=== PATIENT | female | born 1995 | race Two or more races ===

== ENCOUNTER 2016-12-25 11:51 | Emergency (ER) | payer OTHER ==
[2016-12-25] MEDS ORDERED: LORazepam 2 MG/ML INJ IVP ONE (12:03)
--- NOTE | 2016-12-25 12:18 | EDPHY ---
H & P Stated Complaint: SEIZURE Source: Patient Exam Limitations: No limitations - Personal History Current Tetanus/Diphtheria Vaccine: Unsure - Medical/Surgical History Hx Asthma: No Hx Chronic Respiratory Disease: No Hx Diabetes: No Hx Cardiac Disease: No Hx Renal Disease: No Hx Cirrhosis: No Hx Alcoholism: No Hx HIV/AIDS: No Hx Splenectomy or Spleen Trauma: No Other PMH: PMH: depression, anxiey, transversemyelitis. SEIZURES. PSH: - Family History Significant Family History: No pertinent family hx - Social History Smoking Status: Former smoker Alcohol Use: Rarely Drug Use: None Time Seen by Provider: 12/25/16 12:09 HPI/ROS: HPI: 21-year-old female presents to emergency department with chief concern possible seizure activity. Occurred 30 minutes prior to arrival when she was sitting in class at [employer], slumped over and had a witnessed seizure that lasted for 2 minutes. She does not remember the event. Reports possible seizure activity, not confirmed, in the past for which she is being worked up by a neurologist who has performed an MRI of the head in the past 2 months, and has referred her to a data processing auditor. Denies recent trauma, fever, chills, alcohol use, URI symptoms, shortness of breath, chest pain, abdominal pain, nausea or vomiting. No recent illicit drug use. Has a history of vagal episodes in the past. ROS:10 point review of systems is negative other than as stated in HPI (Claudia Up) - Social History Additional Social History: [employer] student (Claudia Up) - Physical Exam Exam: Vital signs stable, reviewed by me General: Awake, calm, cooperative. No acute distress. EENT: PERRLA. EOMI. No papilledema. no conjunctival injection or hemorrhage. TMs intact, translucent. No evidence of bleeding or otorrhea. Nasal septum midline, nasal mucosa pink. no evidence of drainage. Uvula midline, pharynx without redness. Neck: No midline tenderness, full range of motion, supple Resp: Breathing unlabored. Lungs clear to auscultation bilaterally. CV: HRR. S1S2. No MRG. GI: Abdomen soft, nontender. Bowel sounds normoactive and positive x4 quadrants. : No suprapubic tenderness. No CVA tenderness. Skin: Warm, dry. No rashes noted. Capillary refill less than 2 seconds. Musculoskeletal: Strength equal and 5+ in all 4 extremities. Neuro: No focal neuro deficit. CN II through XII intact. Rapid alternating hand movements intact. Finger to nose intact. Heel to ramirez intact. Negative Romberg. Negative pronator drift. Gait even and steady. Memory and recall of 3/3 objects at 5 minutes intact. Upper and lower extremity DTRs 2+. Extremities: Full range of motion. (Claudia Up) Constitutional: Initial Vital Signs Temperature (C) 36.6 C 12/25/16 11:57 Heart Rate 76 12/25/16 11:57 Respiratory Rate 16 12/25/16 11:57 Blood Pressure 109/81 H 12/25/16 11:57 O2 Sat (%) 96 12/25/16 11:57 O2 Delivery Mode Room Air Allergies/Adverse Reactions: No Known Allergies Allergy (Unverified 08/23/16 17:56) Home Medications: Medication Instructions Recorded BENADRYL 08/23/16 LORazepam 08/23/16 Minastrin 24 Fe Chewable Tab 08/23/16 Zoloft 100mg (*) 08/23/16 Medical Decision Making ED Course/Re-evaluation: 21-year-old female presents to emergency department brought in by EMS with chief concern seizure activity. She has had possible seizure activity, not confirmed, for which she has been under the care of a neurologist. She had a MRI of the head under the care of a neurologist within the past 2 months. Neurologist referred her to data processing auditor for further workup. She has not recently drink alcohol. This is not an alcohol withdrawal seizure. 1310: EKG shows a sinus rhythm, rate 83. White count 48721, otherwise labs are fairly unremarkable. Patient feels much better. She agrees to follow up with her neurologist within the next 2-3 days without fail. She has been counseled regarding seizure precautions. (Claudia Up) Differential Diagnosis: Differential diagnosis includes but is not limited to seizure, alcohol withdrawal seizure, metabolic derangement, infection, head trauma (Claudia Up ) Other Provider: The patient wasevaluatedand managed by themidlevel provider. My co- signature indicates that [facility] reviewed this chart and I agree with the findings and plan of care asdocumented. I am the secondary supervising physician. (Ana Genao) - Data Points Laboratory Results: Laboratory Results 12/25/16 12:30 12/25/16 12:30 Medications Given: Discontinued Medications Lorazepam (Ativan Injection) 1 mg IVP EDNOW ONE Stop: 12/25/16 12:04 Last Admin: 12/25/16 12:33 Dose: 1 mg Departure - Departure Disposition: Home, Routine, Self-Care Clinical Impression: Seizure-like activity Condition: Good Instructions: Epilepsy (ED) Additional Instructions: Plan: Please follow up with your neurologist within the next 2-3 days for recheck without fail--When you call to schedule appointment, please let the office know you are an "ER follow up" appointment" Also, please alert your primary care provider of these events shower rather than bathe do not swim unsupervised no heights including climbing, ladders Do not drive until you have been cleared by neurology Follow up in 2-3 days as discussed--tell office you are "ER follow up appointment" when you call. Referrals: NONE *PRIMARY CARE P,. [Unknown] - As per Instructions Henry Winter DO [Doctor of Osteopathy] - As per Instructions
[2016-12-25 12:44] LABS: % IMMATURE GRANULYOCYTES 0.2 % (0.0-1.1); ABSOLUTE IMMATURE GRANULOCYTES 0.03 10^3/uL (0.00-0.10); ADD DIFF? NO; ADD MORPH? NO; ADD SCAN? NO; ATYPICAL LYMPHOCYTE FLAG 10 (0-99); FRAGMENT RBC FLAG 0 (0-99); HEMATOCRIT 39.6 % (38.0-47.0); HEMOGLOBIN 13.4 g/dL (12.6-16.3); LEFT SHIFT FLG 0 (0-99); LIPEMIA HEMOLYSIS FLAG 90 (0-99); MEAN CELL HEMOGLOBIN 29.2 pg (27.9-34.1); MEAN CELL HEMOGLOBIN CONCENTR. 33.8 g/dL (32.4-36.7); MEAN CELL VOLUME 86.3 fL (81.5-99.8); MEAN PLATELET VOLUME 10.2 fL (8.7-11.7); PLATELET CLUMPS FLAG 0 (0-99); PLATELET COUNT 337 10^3/uL (150-400); RED BLOOD CELL COUNT 4.59 10^6/uL (4.18-5.33); RED CELL DISTRIBUTION WIDTH 13.1 % (11.5-15.2)
--- NOTE | 2016-12-25 12:53 | CPEKG ---
Heart Rate: 83 RR Interval: 723 P-R Interval: 128 QRSD Interval: 88 QT Interval: 368 QTC Interval: 433 P [place]: 73 QRS [place]: 84 T Wave [place]: 11 EKG Severity - NORMAL ECG - EKG Impression: SINUS RHYTHM EKG Impression: Left atrial abnormality Electronically Signed By: Claudia Pereira 26-Dec-2016 08:57:34
[2016-12-25 12:59] LABS: ANION GAP 11 mEq/L (8-16); CALCIUM 9.5 mg/dL (8.5-10.4); CARBON DIOXIDE 25 mEq/l (22-31); CHLORIDE 103 mEq/L (97-110); CREATININE 0.9 mg/dL (0.6-1.0); GLOMERULAR FILTRATION RATE > 60; GLUCOSE 88 mg/dL (70-100); POTASSIUM 3.5 mEq/L (3.5-5.2); SODIUM 139 mEq/L (134-144)
[2016-12-25 13:24] VITALS: BP 106/73; PULSE 80; RESP 18; TEMP 98.2; O2SAT 97
== END 2016-12-25 13:24 | disposition home or self-care (01) ==
LOC: EDUNIT#
DX: G40.909 Epilepsy, unspecified, not intractable, without status epilepticus (principal); Z87.891 Personal history of nicotine dependence
CPT/HCPCS: 96374

== ENCOUNTER 2017-06-29 11:19 | Emergency (ER) | payer OTHER ==
[2017-06-29 11:27] VITALS: TEMP 98.2
[2017-06-29] MEDS ORDERED: NS 1,000 ML IV ONE ×2 (11:57)
[2017-06-29] MEDS ORDERED: LORazepam 2 MG/ML INJ IVP ONE (11:57)
[2017-06-29] MEDS ORDERED: ONDANSETRON 4 MG/2 ML VIAL IVP ONE (11:57)
[2017-06-29] MEDS ORDERED: KETOROLAC 30 MG/1 ML SDV IVP ONE (11:57)
--- NOTE | 2017-06-29 12:00 | EDPHY ---
H & P Stated Complaint: VOMITTING & HYPERVENTILATING Time Seen by Provider: 06/29/17 11:52 HPI/ROS: CHIEF COMPLAINT: Nausea vomiting diarrhea since this morning HISTORY OF PRESENT ILLNESS: 22-year-old female with no history of chronic abdominal pathology, no history of abdominal surgeries, awoke with nausea, vomiting, diarrhea since this morning as well as diffuse abdominal pain and cramping. No prior history of similar or chronic history of cyclic vomiting syndrome. No international travel. No untreated water sources. No urinary abnormality. No abdominal or other trauma. No seizure PRIMARY CARE PROVIDER: [facility] REVIEW OF SYSTEMS: A ten point review of systems was performed and is negative with the exception of the items mentioned in the HPI PAST MEDICAL & SURGICAL HISTORY: Seizure disorder history SOCIAL HISTORY: student PHYSICAL EXAM (Prior to examination, patient consented to physical exam, hands were washed and my usual and customary physical exam procedures followed) 1) GENERAL: Well-developed, well-nourished, alert and oriented. Appears uncomfortable, hyperventilating, appears anxious, retching 2) HEAD: Normocephalic, atraumatic 3) HEENT: Pupils equal, round, reactive to light bilaterally. Sclera anicteric. Nasopharynx, oropharynx, clear, no lesions. Dry mucous membranes Ears bilaterally with normal tympanic membranes. 4) NECK: Full range of motion, no meningeal signs. 5) LUNGS: Clear auscultation bilaterally, no wheezes, no rhonchi, no retractions. 6) HEART: Regular rate and rhythm, no murmur, no heave, no gallop. 7) ABDOMEN: Guarding abdomen, tender to palpation all quadrants, 8) MUSCULOSKELETAL: Moving all extremities, no focal areas of tenderness, no obvious trauma. No peripheral edema or discoloration. 9) BACK: No CVA tenderness 10) SKIN: No rash, no petechiae. 11) Psychiatric: Patient is oriented X 3, there is no agitation. DIFFERENTIAL DIAGNOSIS: My differential diagnosis includes, but is not limited to, acute appendicitis, acute cholecystitis, bowel obstruction, acute pancreatitis, ovarian torsion, ectopic , gastritis and urinary tract infection. The patient understands that this diagnosis is provisional and can never be 100% accurate. This is a partial list of diagnoses considered. These considerations are based on history, physical exam, past history and reassessment. - Personal History LMP (Females 10-55): Over 28 Days Ago Current Tetanus/Diphtheria Vaccine: Unsure - Medical/Surgical History Hx Asthma: No Hx Chronic Respiratory Disease: No Hx Diabetes: No Hx Cardiac Disease: No Hx Renal Disease: No Hx Cirrhosis: No Hx Alcoholism: No Hx HIV/AIDS: No Hx Splenectomy or Spleen Trauma: No Other PMH: PMH: depression, anxiey, transversemyelitis. SEIZURES. PSH: - Social History Smoking Status: Current some day smoker Constitutional: Initial Vital Signs Temperature (C) 36.8 C 06/29/17 11:24 Heart Rate 78 06/29/17 11:24 Respiratory Rate 24 H 06/29/17 11:24 Blood Pressure 118/72 06/29/17 11:24 O2 Sat (%) 96 06/29/17 11:24 O2 Delivery Mode Room Air Allergies/Adverse Reactions: No Known Allergies Allergy (Unverified 08/23/16 17:56) Home Medications: Medication Instructions Recorded BENADRYL 08/23/16 LORazepam 08/23/16 Minastrin 24 Fe Chewable Tab 08/23/16 Zoloft 100mg (*) 08/23/16 Ondansetron Odt [Zofran Odt] 4 mg PO Q4PRN PRN #10 tab 06/29/17 Medical Decision Making ED Course/Re-evaluation: 12:50 p.m.: Re-evaluation after IV Ativan, Zofran, Toradol. She is sleeping, easily woken. Re-examined her abdomen which is soft no guarding or rebound no McBurney's point pain. At this time I think that acute surgical abdominal pathology is less than likely in this patient, doubt ectopic , doubt acute appendicitis, doubt acute cholecystitis. Will attempt oral fluid challenge and re-evaluated 1:15 p.m.: Re-evaluation, she has been able to tolerate oral intake. Re- examined her abdomen which is soft no guarding or rebound. Specifically no McBurney's point pain. She would like to be discharged. She would like to common sleep. She has been informed that at this time I think that acute surgical abdominal pathology is less than likely however this cannot be fully ruled out in the importance of close follow-up has been stressed on numerous instances. Recommend a 12 hour recheck in the ER. Definitely return sooner if she is experiencing new symptoms. She feels comfortable with this plan. - Data Points Laboratory Results: Laboratory Results 06/29/17 12:00 06/29/17 12:00 06/29/17 06/29/17 06/29/17 13:15 12:00 12:00 WBC RBC Hgb Hct MCV MCH MCHC RDW Plt Count MPV Neut % (Auto) Lymph % (Auto) [place] % (Auto) Eos % (Auto) Baso % (Auto) Nucleat RBC Rel Count Absolute Neuts (auto) Absolute Lymphs (auto) Absolute Monos (auto) Absolute Eos (auto) Absolute Basos (auto) Absolute Nucleated RBC Immature Gran % Immature Gran # Sodium 141 mEq/L mEq/L (134-144) Potassium 4.2 mEq/L mEq/L (3.5-5.2) Chloride 105 mEq/L mEq/L (97-110) Carbon Dioxide 18 mEq/l L mEq/l (22-31) Anion Gap 18 mEq/L H mEq/L (8-16) BUN 10 mg/dL mg/dL (7-23) Creatinine 0.8 mg/dL mg/dL (0.6-1.0) Estimated GFR > 60 Glucose 105 mg/dL H mg/dL (70-100) Calcium 10.0 mg/dL mg/dL (8.5-10.4) Total Bilirubin 0.4 mg/dL mg/dL (0.1-1.4) Conjugated Bilirubin 0.3 mg/dL mg/dL (0.0-0.5) Unconjugated Bilirubin 0.1 mg/dL mg/dL (0.0-1.1) AST 34 IU/L IU/L (14-46) ALT 37 IU/L IU/L (9-52) Alkaline Phosphatase 64 IU/L IU/L (38-126) Total Protein 8.2 g/dL g/dL (6.3-8.2) Albumin 4.8 g/dL g/dL (3.5-5.0) Lipase 95 IU/L IU/L (23-300) Beta HCG, Qual NEGATIVE Urine Color YELLOW Urine Appearance CLEAR Urine pH 7.0 (5.0-7.5) Ur Specific [place] 1.011 (1.002-1.030) Urine Protein NEGATIVE (NEGATIVE) Urine Ketones NEGATIVE (NEGATIVE) Urine Blood NEGATIVE (NEGATIVE) Urine Nitrate NEGATIVE (NEGATIVE) Urine Bilirubin NEGATIVE (NEGATIVE) Urine Urobilinogen NEGATIVE EU EU (0.2-1.0) Ur Leukocyte Esterase NEGATIVE (NEGATIVE) Urine RBC 5-10 /hpf H /hpf (0-3) Urine WBC 1-3 /hpf /hpf (0-3) Ur Epithelial Cells TRACE /lpf /lpf (NONE-1+) Urine Mucus TRACE /lpf /lpf (NONE-1+) Urine Glucose NEGATIVE (NEGATIVE) 06/29/17 12:00 WBC 10.60 10^3/uL H 10^3/uL (3.80-9.50) RBC 4.64 10^6/uL 10^6/uL (4.18-5.33) Hgb 13.8 g/dL g/dL (12.6-16.3) Hct 40.8 % % (38.0-47.0) MCV 87.9 fL fL (81.5-99.8) MCH 29.7 pg pg (27.9-34.1) MCHC 33.8 g/dL g/dL (32.4-36.7) RDW 13.1 % % (11.5-15.2) Plt Count 479 10^3/uL H 10^3/uL (150-400) MPV 10.0 fL fL (8.7-11.7) Neut % (Auto) 64.5 % % (39.3-74.2) Lymph % (Auto) 26.0 % % (15.0-45.0) [place] % (Auto) 4.7 % % (4.5-13.0) Eos % (Auto) 3.0 % % (0.6-7.6) Baso % (Auto) 1.4 % % (0.3-1.7) Nucleat RBC Rel Count 0.0 % % (0.0-0.2) Absolute Neuts (auto) 6.83 10^3/uL H 10^3/uL (1.70-6.50) Absolute Lymphs (auto) 2.76 10^3/uL 10^3/uL (1.00-3.00) Absolute Monos (auto) 0.50 10^3/uL 10^3/uL (0.30-0.80) Absolute Eos (auto) 0.32 10^3/uL 10^3/uL (0.03-0.40) Absolute Basos (auto) 0.15 10^3/uL H 10^3/uL (0.02-0.10) Absolute Nucleated RBC 0.00 10^3/uL 10^3/uL (0-0.01) Immature Gran % 0.4 % % (0.0-1.1) Immature Gran # 0.04 10^3/uL 10^3/uL (0.00-0.10) Sodium Potassium Chloride Carbon Dioxide Anion Gap BUN Creatinine Estimated GFR Glucose Calcium Total Bilirubin Conjugated Bilirubin Unconjugated Bilirubin AST ALT Alkaline Phosphatase Total Protein Albumin Lipase Beta HCG, Qual Urine Color Urine Appearance Urine pH Ur Specific [place] Urine Protein Urine Ketones Urine Blood Urine Nitrate Urine Bilirubin Urine Urobilinogen Ur Leukocyte Esterase Urine RBC Urine WBC Ur Epithelial Cells Urine Mucus Urine Glucose Medications Given: Discontinued Medications Sodium Chloride (Ns) 1,000 mls @ 0 mls/hr IV EDNOW ONE; Wide Open PRN Reason: Protocol Stop: 06/29/17 11:58 Last Admin: 06/29/17 12:10 Dose: 1,000 mls Sodium Chloride (Ns) 1,000 mls @ 0 mls/hr IV EDNOW ONE; Wide Open PRN Reason: Protocol Stop: 06/29/17 11:58 Last Admin: 06/29/17 12:10 Dose: 1,000 mls Ketorolac Tromethamine (Toradol) 30 mg IVP EDNOW ONE Stop: 06/29/17 11:58 Last Admin: 06/29/17 12:09 Dose: 30 mg Lorazepam (Ativan Injection) 1 mg IVP EDNOW ONE Stop: 06/29/17 11:58 Last Admin: 06/29/17 12:11 Dose: 1 mg Ondansetron HCl (Zofran) 4 mg IVP EDNOW ONE Stop: 06/29/17 11:58 Last Admin: 06/29/17 12:10 Dose: 4 mg Departure - Departure Disposition: Home, Routine, Self-Care Clinical Impression: Volume depletion Nausea & vomiting Qualifiers: Vomiting type: unspecified Vomiting Intractability: non-intractable Qualified Code(s): R11.2 - Nausea with vomiting, unspecified Condition: Good Instructions: Acute Nausea and Vomiting (ED) Additional Instructions: Seek immediate medical attention if you develop new or worsening symptoms, if you develop fevers, chills, inability to tolerate oral intake or any other symptoms that concerns you. Referrals: Return, to the ER in 12 hours for recheck [Other] - As per Instructions Prescriptions: Ondansetron Odt [Zofran Odt] 4 mg PO Q4PRN PRN #10 tab PRN Reason: Nausea
[2017-06-29 12:17] LABS: % IMMATURE GRANULYOCYTES 0.4 % (0.0-1.1); ABSOLUTE IMMATURE GRANULOCYTES 0.04 10^3/uL (0.00-0.10); ADD DIFF? NO; ADD MORPH? NO; ADD SCAN? NO; ATYPICAL LYMPHOCYTE FLAG 10 (0-99); FRAGMENT RBC FLAG 10 (0-99); HEMATOCRIT 40.8 % (38.0-47.0); HEMOGLOBIN 13.8 g/dL (12.6-16.3); LEFT SHIFT FLG 0 (0-99); LIPEMIA HEMOLYSIS FLAG 90 (0-99); MEAN CELL HEMOGLOBIN 29.7 pg (27.9-34.1); MEAN CELL HEMOGLOBIN CONCENTR. 33.8 g/dL (32.4-36.7); MEAN CELL VOLUME 87.9 fL (81.5-99.8); PLATELET CLUMPS FLAG 10 (0-99); PLATELET COUNT 479 10^3/uL (150-400); RED BLOOD CELL COUNT 4.64 10^6/uL (4.18-5.33); RED CELL DISTRIBUTION WIDTH 13.1 % (11.5-15.2)
[2017-06-29 12:38] LABS: ALANINE AMINOTRANSFERASE 37 IU/L (9-52); ALBUMIN 4.8 g/dL (3.5-5.0); ALKALINE PHOSPHATASE 64 IU/L (38-126); ANION GAP 18 mEq/L (8-16); ASPARTATE AMINOTRANSFERASE 34 IU/L (14-46); BILIRUBIN,TOTAL 0.4 mg/dL (0.1-1.4); BILIRUBIN-CONJUGATED 0.3 mg/dL (0.0-0.5); BILIRUBIN-UNCONJUGATED 0.1 mg/dL (0.0-1.1); CARBON DIOXIDE 18 mEq/l (22-31); CHLORIDE 105 mEq/L (97-110); CREATININE 0.8 mg/dL (0.6-1.0); GLOMERULAR FILTRATION RATE > 60; GLUCOSE 105 mg/dL (70-100); POTASSIUM 4.2 mEq/L (3.5-5.2); SODIUM 141 mEq/L (134-144); TOTAL PROTEIN 8.2 g/dL (6.3-8.2)
[2017-06-29 13:29] LABS: COLOR YELLOW; LEUKOCYTE ESTERASE,URINE NEGATIVE (NEGATIVE); NITRITE,URINE NEGATIVE (NEGATIVE)
[2017-06-29 13:49] VITALS: BP 101/62; PULSE 67; RESP 18; O2SAT 99
[2017-06-29 13:51] LABS: MUCUS TRACE /lpf (NONE-1+)
== END 2017-06-29 13:49 | disposition home or self-care (01) ==
DX: E86.9 Volume depletion, unspecified (principal); F17.200 Nicotine dependence, unspecified, uncomplicated
CPT/HCPCS: 96374; J1885; J2060; J2405

== ENCOUNTER 2018-09-27 11:41 | Emergency (ER) | payer OTHER ==
[2018-09-27] MEDS ORDERED: ONDANSETRON DISINTEGRATING 4 MG TAB PO ONE (11:49)
[2018-09-27] MEDS ORDERED: NS 1,000 ML IV ONE (13:04)
[2018-09-27] MEDS ORDERED: PROMETHAZINE HCL 25 MG/ML INJ IVP ONE (13:04)
--- NOTE | 2018-09-27 13:05 | EDPHY ---
H & P Stated Complaint: etoh last night n/v Source: Patient Exam Limitations: No limitations - Personal History LMP (Females 10-55): Extended Cycle BCP/Inj Current Tetanus Diphtheria and Acellular Pertussis (TDAP): Yes - Medical/Surgical History Hx Asthma: No Hx Chronic Respiratory Disease: No Hx Diabetes: No Hx Cardiac Disease: No Hx Renal Disease: No Hx Cirrhosis: No Hx Alcoholism: No Hx HIV/AIDS: No Hx Splenectomy or Spleen Trauma: No Other PMH: PMH: depression, anxiey, transversemyelitis. SEIZURES. PSH: - Social History Smoking Status: Current every day smoker Time Seen by Provider: 09/27/18 13:02 HPI/ROS: HPI: This is a 23-year-old female who presents with Chief Complaint: etoh last night n/v Location: Abdomen Quality: Nausea/vomiting Duration: Since midnight Signs and Symptoms: no fever, + nausea, + vomiting, no hematemesis, no blood in stool, no abdominal bloating, no diarrhea, no back pain, no urinary symptoms, no vaginal bleeding/discharge, no indigestion, no chest pain, no shortness of breath Timing: Acute, intermittent episodes Severity: Moderate Context: Patient is a student at [employer], presents with complaints of drinking alcohol last night and then starting to throw up around midnight. She reports that she has vomited approximately 5-10 times. She has a history of seizure disorder and normally takes Lamictal daily. She vomited her Lamictal this morning. Patient complains of abdominal cramping but no true abdominal pain. She denies fever, diarrhea, urinary symptoms. She has 3 months extended control and does not have regular menses. Patient reports that she has not been able to keep any food or water down today. Modifying Factors: None Comment: ROS: A comprehensive 10 system review of systems is otherwise negative aside from elements mentioned in the history of present illness. MEDICAL/SURGICAL/SOCIAL HISTORY: Medical history: depression, anxiety, transverse myelitis. SEIZURES. Has extended control. Surgical history: Denies Social history: Student at [employer]. Current every day smoker. Family history noncontributory. CONSTITUTIONAL: Tearful, lately anxious, young adult female, awake and alert, no obvious distress HEENT: Atraumatic and normocephalic, PERRL, EOMI. Nares patent; no rhinorrhea; no nasal mucosal edema. Tympanic membranes clear. Oropharynx clear, no exudate and moist pink mucosa. Airway patent. No lymphadenopathy. No meningismus. Cardiovascular: Normal S1/S2, tachycardia, regular rhythm, without murmur rub or gallop. PULMONARY/CHEST: Symmetrical and nontender. Clear to auscultation bilaterally. Good air movement. No accessory muscle usage. ABDOMEN: Soft, nondistended, nontender, no rebound, no guarding, no peritoneal signs, no masses or organomegaly. No CVAT. EXTREMITIES: 2/2 pulses, strength 5/5, no deformities, no clubbing, no cyanosis or edema. NEUROLOGICAL: no focal neuro deficits. GCS 15. SKIN: Warm and dry, no erythema. no rash. Good capillary refill. (Arlene Aragon) Constitutional: Initial Vital Signs Temperature (C) 36.6 C 09/27/18 11:46 Heart Rate 107 H 09/27/18 11:46 Respiratory Rate 19 09/27/18 11:46 Blood Pressure 114/81 H 09/27/18 11:46 O2 Sat (%) 97 09/27/18 11:46 O2 Delivery Mode Room Air Allergies/Adverse Reactions: No Known Allergies Allergy (Verified 09/27/18 11:45) Home Medications: Medication Instructions Recorded LaMICtal 09/27/18 Levonorgest/Eth.estradiol/Iron 09/27/18 Ondansetron Odt [Zofran Odt 4 mg 4 mg PO Q4 PRN #12 tab 09/27/18 (*)] Medical Decision Making ED Course/Re-evaluation: Vital signs reviewed and show mild tachycardia upon arrival. IV access and laboratory studies ordered Abdomen is soft and nontender. Doubt surgical process and need for imaging. Given 1 L normal saline, p.o. Zofran and IV promethazine 12.5 mg 1357: Notified by RN that patient is no longer complaining of nausea and has not vomited. P.o. Trial started and given p.o. Lamictal 100 mg 1425: Reassessed patient and abdomen remains soft and nontender. Discharge home with supportive care and a prescription for Zofran. This patient was seen under the supervision of my secondary supervising physician. I evaluated care for this patient independently. Discussed this patient with Dr. Null who did not see the patient. (Arlene Aragon) The patient was evaluated and managed by the physician process assistant. I have reviewed this chart and I agree with the findings and plan of care as documented , as indicated by my signature. I am the secondary supervising physician. ( Nova Null) Differential Diagnosis: Differential diagnosis includes but is not limited to electrolyte imbalance, alcohol intoxication, dehydration, gastroenteritis, appendicitis. (Arlene Aragon) - Data Points Laboratory Results: Laboratory Results 09/27/18 13:15 09/27/18 13:15 Medications Given: Discontinued Medications Sodium Chloride (Ns) 1,000 mls @ 0 mls/hr IV EDNOW ONE; Wide Open PRN Reason: Protocol Stop: 09/27/18 13:05 Last Admin: 09/27/18 13:15 Dose: 1,000 mls Lamotrigine (Lamictal) 100 mg PO EDNOW ONE Stop: 09/27/18 13:57 Last Admin: 09/27/18 14:29 Dose: 100 mg Ondansetron HCl (Zofran Odt) 4 mg PO EDNOW ONE Stop: 09/27/18 11:50 Last Admin: 09/27/18 11:51 Dose: 4 mg Promethazine HCl (Phenergan) 12.5 mg IVP EDNOW ONE Stop: 09/27/18 13:05 Last Admin: 09/27/18 13:48 Dose: 12.5 mg Departure - Departure Disposition: Home, Routine, Self-Care Clinical Impression: Alcohol intoxication, Nausea and vomiting Condition: Good Instructions: Acute Nausea and Vomiting (ED) Additional Instructions: Consume a minimum of 8-10 glasses of water or electrolyte fluid replacement drinks that include Gatorade, Powerade, Pedialyte. Eat a bland diet for the next 48 hours and then slowly advance as tolerated. Take Zofran 1 tab every 4 hours as needed for nausea, vomiting. Refrain from excessive alcohol use. Referrals: [facility],. [Clinic] - As per Instructions Prescriptions: Ondansetron Odt [Zofran Odt 4 mg (*)] 4 mg PO Q4 PRN #12 tab PRN Reason: Nausea/Vomiting, Use 1st
[2018-09-27 13:41] LABS: PLATELET COUNT 421 10^3/uL (150-400)
[2018-09-27] MEDS ORDERED: lamoTRIgine 100 MG TAB PO ONE (13:56)
[2018-09-27 14:33] VITALS: BP 124/77
== END 2018-09-27 14:33 | disposition home or self-care (01) ==
DX: F10.920 Alcohol use, unspecified with intoxication, uncomplicated (principal); R11.2 Nausea with vomiting, unspecified; E86.9 Volume depletion, unspecified; F41.9 Anxiety disorder, unspecified; F32.9 Major depressive disorder, single episode, unspecified; R56.9 Unspecified convulsions
CPT/HCPCS: 96374; G0480; J2550